=== PATIENT | male | born 1970 | race Caucasian/White ===

== ENCOUNTER 2022-10-18 13:37 | Outpatient (OUT) | payer BC, SELFPAY ==
--- NOTE | 2022-10-18 14:15 | PM.CN ---
Consult Note: HPI Data of Consult Patient: known to practice within the last 3 years Consult date: 10/18/22 Requesting Physician: ABDON FAITH NP Primary Care Provider: LYNETTE BEASLEY Family Provider: LYNETTE BEASLEY Consult Narrative Narrative: Patient is here for f/u of lumbar RFA with relief only for several days . He had LESI in 03/03 with significant relief. No new sensorimotor sx or new bowel or bladder issues. No radicular pain or steosis at this time. Medication regimen is controlling pain and assisting with ability to complete ADLs. He does get drowsy with baclofen and takes it only at night. We did discuss ability to take tylenol or motrin as directed. We reviewed last MRI from 2020. We discussed repeating MRI and he is in agreement. He has had PT in the past without relief. cc:: CC: ABDON FAITH NP Review of Systems ROS Status of ROS 10 or more systems reviewed and unremarkable except as noted in history and below Musculoskeletal Reports: back pain Exam Constitutional Documenting provider has reviewed patient's vital signs: yes Common normals: no apparent distress, average body habitus, oriented x3, healthy appearing, alert and well nourished General appearance: cooperative, comfortable and well developed Orientation/consciousness: Yes awake, Yes oriented to person, Yes oriented to place and Yes oriented to time HENMT Common normals: external ears normal, nasal mucous membranes and turbinates normal and moist oral mucous membranes Respiratory Common normals: normal respiratory effort, no retractions and no use of accessory muscles Effort & inspection: able to speak in complete sentences and symmetric chest movement Back & Pelvis Lumbar spine/lower back: normal to inspection, lumbar ROM normal, pain with ROM, paraspinal muscle tenderness and straight leg raise negative bilaterally Other: slightly positive facet loading bilat. negative anthony. no radicular sx. Bilat LE muscle strength 5/5 with intact sensation Assessment and Plan Assessment and Plan (1) Lumbar spondylosis: (2) Muscle spasm: Plan LS MRI without contrast tylenol or motrin as directed as needed
== END 2022-10-18 13:38 ==
PROVIDERS: Family Provider Family Medicine; PCP Family Medicine; Visit Provider Nurse Practitioner
DX: M47.816 Spondylosis without myelopathy or radiculopathy, lumbar region (principal); M62.838 Other muscle spasm
CPT/HCPCS: G0463

== ENCOUNTER 2022-11-05 12:45 | Outpatient (OUT) | payer BC, SELFPAY ==
--- NOTE | 2022-11-05 13:01 | MR_ITS ---
[place] [id number] Patient Name: EMELY CONN MRN: [id number] date: 1970 Sex: M Assigned Patient Location: MRI Current Patient Location: MRI Accession/Order Number: [id number] Exam Date: 11/05/2022 13:00 Report Date: 11/05/2022 21:44 At the request of: ABDON FAITH Procedure: MR lumbar spine wo con EXAMINATION: MR lumbar spine wo con HISTORY: Lumbar spondylosis COMPARISON: 02/20/2021 TECHNIQUE: A variety of imaging planes and parameters were utilized for visualization of suspected pathology. FINDINGS: For the purposes of numbering, sagittal T2 image # 8 extends from the T11 vertebral body superiorly to the S3-S4 level inferiorly. PARASPINAL AREA: Normal with no visible mass. BONES: Normal alignment with no acute fracture or spondylolisthesis. Signal abnormality inferior L5 superior S1, Modic 2 changes. Signal abnormality L4 vertebral body likely a hemangioma CORD/CAUDA EQUINA: Normal caliber, contour, and signal intensity. DISC LEVELS: 12-L1: No significant disc/facet abnormality, spinal stenosis, or foraminal stenosis. L1-L2: No significant disc/facet abnormality, spinal stenosis, or foraminal stenosis. L2-L3: No significant disc/facet abnormality, spinal stenosis, or foraminal stenosis. L3-L4: No significant disc/facet abnormality, spinal stenosis, or foraminal stenosis. L4-L5: Disc desiccation. Posterior broad-based disc protrusion extending up to 3 mm, sagittal image #8. No central or foraminal stenosis L5-S1: Moderate disc space narrowing. Posterior disc herniation of the extrusion type extending posteriorly 4 mm with inferior migration up to 3 mm, sagittal image #8. Bilateral facet osteoarthropathy. No central canal stenosis. Mild narrowing of the right neural foramen, sagittal image #12. No left foraminal stenosis IMPRESSION: Moderate degenerative changes L4-5 and L5-S1 Mild narrowing of the right L5-S1 foramen Electronically authenticated by: LYNETTE SOUZA Date: 11/05/2022 21:44
== END 2022-11-05 12:46 | disposition home or self-care (01) ==
LOC: MRI 12:51
PROVIDERS: Family Provider Family Medicine; PCP Family Medicine; Visit Provider Nurse Practitioner
DX: M47.816 Spondylosis without myelopathy or radiculopathy, lumbar region (principal)
CPT/HCPCS: 72148

== ENCOUNTER 2022-11-08 13:05 | Outpatient (OUT) | payer BC, SELFPAY ==
--- NOTE | 2022-11-08 13:26 | PM.CN ---
Consult Note: HPI Data of Consult Patient: known to practice within the last 3 years Consult date: 11/08/22 Requesting Physician: ABDON FAITH NP Primary Care Provider: LYNETTE BEASLEY Family Provider: LYNETTE BEASLEY Consult Narrative Reason for consult: back pain Narrative: Patient is here for f/u of low back pain. Recent MRI done and reviewed results with patient. Oswestry-30 . No new sensorimotor sx or bowel or bladder issues. Medication regimen is controlling pain and assisting patient with ability to perform ADLs. Pain has increased. Dr. Collins did review MRI result and recommended JACKIE or steroid dose pack and neurospine consult. Patient has had JACKIE in past with short acting relief. Also had failed RFA this year. He is willing to consult neurospine and try medrol pack. cc:: CC: ABDON FAITH NP Review of Systems ROS Status of ROS 10 or more systems reviewed and unremarkable except as noted in history and below Musculoskeletal Reports: back pain Meds Home Medications and Allergies Home Medications Medication Instructions Recorded Confirmed Type apixaban 5 mg tablet (Eliquis) 5 mg PO BID 10/19/22 10/19/22 History baclofen 10 mg tablet 10 mg PO TID 10/19/22 10/19/22 History brimonidine 0.2 %-timolol 0.5 % 1 drp ophthalmic (eye) Q12H 10/19/22 10/19/22 History eye drops (Combigan) latanoprost 0.005 % eye drops 1 drp ophthalmic (eye) DAILY 10/19/22 10/19/22 History metoprolol tartrate 50 mg tablet 50 mg PO DAILY 10/19/22 10/19/22 History multivitamin 1 tab PO DAILY 10/19/22 10/19/22 History Allergies Allergy/AdvReac Type Severity Reaction Status Date / Time No Known Drug Allergies Allergy Verified 10/19/22 09:18 Exam Constitutional Documenting provider has reviewed patient's vital signs: yes Common normals: no apparent distress, average body habitus, oriented x3, no limitations, healthy appearing, alert and well nourished General appearance: cooperative, comfortable and well developed Orientation/consciousness: Yes awake, Yes oriented to person, Yes oriented to place and Yes oriented to time HENMT Common normals: normocephalic, external ears normal, nasal mucous membranes and turbinates normal and moist oral mucous membranes Respiratory Common normals: normal respiratory effort and no use of accessory muscles Effort & inspection: able to speak in complete sentences and symmetric chest movement Back & Pelvis Lumbar spine/lower back: normal to inspection, ROM limited, pain with ROM, lumbar spinal tenderness, paraspinal muscle tenderness and straight leg raise negative bilaterally Other: positive facet loading muscle strength 5/5 bilat with intact sensation Assessment and Plan Assessment and Plan (1) Lumbar radiculopathy: (2) Muscle spasm: (3) Lumbar spondylosis: Plan medrol dose pack neurospine consult f/u 6 months
== END 2022-11-08 13:06 | disposition home or self-care (01) ==
LOC: PM 13:05
PROVIDERS: Family Provider Family Medicine; PCP Family Medicine; Visit Provider Nurse Practitioner
DX: M47.26 Other spondylosis with radiculopathy, lumbar region (principal); M62.838 Other muscle spasm
CPT/HCPCS: G0463

== ENCOUNTER 2023-04-25 14:58 | Outpatient (OUT) | payer BC, SELFPAY ==
--- NOTE | 2023-04-25 15:39 | P.CN_ITS ---
Consult Note: HPI Data of Consult Patient: known to practice within the last 3 years Requesting Physician: Candida Yun NP Primary Care Provider: LYNETTE BEASLEY Family Provider: LYNETTE BEASLEY Consult Narrative Reason for consult: f/u Narrative: Jeff Mcgill a pleasant 53 year old male presents for evaluation and management of chronic low back pain, today 1-2 in low back. Pain described as an ache/pinch, no numbness tingling or weakness. Patient noticed low back pain greatly improved 1-2 months ago. Patient has been able to manage his pain with PRN tylenol. cc:: CC: Candida Yun NP Review of Systems ROS Status of ROS 10 or more systems reviewed and unremark able except as noted in history and below Musculoskeletal Reports: back pain Meds Home Medications and Allergies Home Medications Medication Instructions Recorded Confirmed Type apixaban 5 mg tablet (Eliquis) 5 mg PO BID 10/19/22 10/19/22 History baclofen 10 mg tablet 10 mg PO TID 10/19/22 10/19/22 History brimonidine 0.2 %-timolol 0.5 % 1 drp ophthalmic (eye) Q12H 10/19/22 10/19/22 History eye drops (Combigan) latanoprost 0.005 % eye drops 1 drp ophthalmic (eye) DAILY 10/19/22 10/19/22 History metoprolol tartrate 50 mg tablet 50 mg PO DAILY 10/19/22 10/19/22 History multivitamin 1 tab PO DAILY 10/19/22 10/19/22 History Allergies Allergy/AdvReac Type Severity Reaction Status Date / Time No Known Drug Allergies Allergy Verified 10/19/22 09:18 Exam Constitutional Documenting provider has reviewed patient's vital signs: yes Common normals: no apparent distress, average body habitus, oriented x3, no limitations, healthy appearing, alert and well nourished General appearance: cooperative, comfortable and well developed Orientation/consciousness: Yes awake, Yes oriented to person, Yes oriented to place and Yes oriented to time HENMT Common normals: normocephalic, external ears normal, nasal mucous membranes and turbinates normal and moist oral mucous membranes Respiratory Common normals: normal respiratory effort and no use of accessory muscles Effort & inspection: able to speak in complete sentences and symmetric chest movement Back & Pelvis Lumbar spine/lower back: normal to inspection, ROM limited, pain with ROM, lumbar spinal tenderness, paraspinal muscle tenderness and straight leg raise negative bilaterally Other: negative facet loading muscle strength 5/5 bilat with intact sensation Assessment and Plan Assessment and Plan (1) Lumbar spondylosis: Plan f/u as needed
== END 2023-04-25 14:59 | disposition home or self-care (01) ==
LOC: PM 14:58
PROVIDERS: Family Provider Family Medicine; PCP Family Medicine; Visit Provider Nurse Practitioner
DX: M47.816 Spondylosis without myelopathy or radiculopathy, lumbar region (principal)
CPT/HCPCS: G0463